=== PATIENT | female | born 1995 | race Two or more races ===

== ENCOUNTER 2017-11-03 22:28 | Emergency (ER) | payer SELFPAY ==
[~2017-11-03] VITALS: Ht 154.9 cm; Wt 82.6 kg
[2017-11-03] MEDS ORDERED: OXYcodone/APAP 10/325MG TABLET ONE (22:56)
[2017-11-03] MEDS ORDERED: LIDOCAINE-MPF 1%, 5ML ONE (22:56)
[2017-11-03] MEDS ORDERED: OXYcodone/APAP 10/325MG TABLET PO ONE (23:00)
[2017-11-03] MEDS ORDERED: LIDOCAINE 1%, 10ML INFIL ONE (23:00)
[2017-11-04] MEDS ORDERED: LIDOCAINE-MPF 1%, 5ML ONE (00:28)
[2017-11-04] MEDS ORDERED: DOXYCYCLINE 100MG TABLET ONE (00:54)
[2017-11-04] MEDS ORDERED: DOXYCYCLINE 100MG TABLET PO ONE (01:00)
[2017-11-04] MEDS ORDERED: [UNRECOGNIZED DRUG - OTHER] PO (02:04)
[2017-11-04 03:33] VITALS: BP 128/66
[2017-11-04] MEDS ORDERED: ONDANSETRON ODT 8 MG ONE (03:40)
[2017-11-04] MEDS ORDERED: ONDANSETRON ODT 8 MG PO ONE (04:00)
== END 2017-11-04 04:31 | disposition home or self-care (01) ==
LOC: ED 23:07
DX: N76.4 Abscess of vulva (principal); R55 Syncope and collapse; F32.9 Major depressive disorder, single episode, unspecified; S06.0X1A Concussion with loss of consciousness of 30 minutes or less, initial encounter; X58.XXXA Exposure to other specified factors, initial encounter; Y93.89 Activity, other specified; Y99.8 Other external cause status; Y92.89 Other specified places as the place of occurrence of the external cause
CPT/HCPCS: 56405; 99284; Q0162

== ENCOUNTER 2018-03-01 11:39 | Emergency (ER) | payer SELFPAY ==
[~2018-03-01] VITALS: Ht 154.9 cm; Wt 87.0 kg
[~2018-03-01 11:39] MED LIST: [UNRECOGNIZED DRUG - OTHER] PO
[2018-03-01 11:42] VITALS: BP 127/65
[2018-03-01] MEDS ORDERED: ALBUTEROL/IPRATROPIUM 2.5MG/0.5MG, 3 ML NPPB ONE (12:00)
[2018-03-01] MEDS ORDERED: ALBUTEROL/IPRATROPIUM 2.5MG/0.5MG, 3 ML ONE (12:24)
== END 2018-03-01 12:51 | disposition home or self-care (01) ==
LOC: ED 12:15
DX: R06.00 Dyspnea, unspecified (principal); J98.01 Acute bronchospasm; R51 Headache; J45.909 Unspecified asthma, uncomplicated
CPT/HCPCS: 71046; 93005; 94640; 99284; J7620